=== PATIENT | male | born 1965 | race Caucasian/White ===

== ENCOUNTER 2021-08-16 00:29 | Day surgery (SDC) | payer OTHER, SELFPAY ==
[2021-07-28 13:34] VITALS: BMI 29.7
--- NOTE | 2021-08-15 09:28 | WPDANESEPPF ---
Anes - Initial Pre Proc Eval Procedure: Operation Date: 08/16/21 08:00 Proposed Procedures p Screening Colonoscopy - Kwaku Chaidez MD Date/Time: 08/15/21 09:28 Surgeon: Kwaku Chaidez MD Pre Op Diagnosis: neoplasm screening Patient Data Age: 56 Gender: M Height: 1.88 m Weight: 105 kg Allergies Allergy/AdvReac Type Severity Reaction Status Date / Time No Known Allergies Allergy Verified 08/16/21 06:52 Home Medications Medication Instructions Recorded Confirmed Type B infantis-B longum-L acid-L 1 cap PO DAILY 06/29/21 07/28/21 History rhamnosus 2 billion cell sprinkle capsule magnesium oxide 500 mg tablet 500 mg PO DAILY 06/29/21 07/28/21 History prasterone (dhea) 25 mg tablet 25 mg PO DAILY 06/29/21 07/28/21 History turmeric root extract 500 mg 500 mg PO DAILY 06/29/21 07/28/21 History capsule vitamin B complex 1 tablet PO DAILY 06/29/21 07/28/21 History omega-3 fatty acids [[place] 3 Fish 1,000 mg PO DAILY 07/28/21 07/28/21 History Oil] Patient hx anesthesia problems: none Family hx anesthesia problems: none Results Review: All pre-operative results and documents have been reviewed as part of the pre-operative evaluation. [facility] Surgical History Surgical History H/O vasectomy Family History Family History Grandparent Alcoholism Carcinoma of colon Father Hypertension Mother Colitis Other Depression Anxiety Alcoholism Social History Social History Social History: 4 cups of caffeine daily Smoking status: Never smoker Alcohol intake: current Drinks per week: 3 Alcohol use details: [place] Substance use: current Substance use type: marijuana Living arrangements: with family Additional occupation/education comments: Pharmacist Gender identity (if verbalized by the patient): Male Sexual Orientation (if Verbalized by the Patient): Straight or Heterosexual Spiritual care concerns: No Agree to blood products: Yes Anes - Eval Final PreProcedure Day of Procedure 08/15/21 09:28 Patient weight: overweight Heart: regular rate and rhythm Lungs: clear to auscultation and normal air movement Airway: Mallampati scale class II Neurological: alert and oriented Last oral intake: >/= 8 hours ASA classification: II Emergent: no Anesthetic plan: proceed Anesthesia type and monitoring: general GIVS and standard monitoring Results Review: All pre-operative results and documents have been reviewed as part of the pre-operative evaluation. Informed Consent: The patient's anesthetic plan and its attendant risks and benefits were discussed with the patient/family/POA. Questions were solicited and answers provided to the satisfaction of the patient/family/POA.
--- NOTE | 2021-08-15 13:25 | P.HP_ITS ---
History of Present Illness History of Present Illness Consent: Risks, benefits, and alternatives have been discussed and questions answered. Patient agrees to proceed with procedure. Chief complaint: neoplasm screening Narrative: Den Gonzalez is a 56 year old male who was referred for colon cancer screening. Review of Systems Review of Systems: All systems reviewed & are unremarkable except as noted in HPI and below PMFSH Surgical History Surgical History H/O vasectomy Family History Family History Grandparent Alcoholism Carcinoma of colon Father Hypertension Mother Colitis Other Depression Anxiety Alcoholism Social History Social History Social History: 4 cups of caffeine daily Smoking status: Never smoker Alcohol intake: current Drinks per week: 3 Alcohol use details: [place] Substance use: current Substance use type: marijuana Living arrangements: with family Additional occupation/education comments: Pharmacist Gender identity (if verbalized by the patient): Male Sexual Orientation (if Verbalized by the Patient): Straight or Heterosexual Spiritual care concerns: No Agree to blood products: Yes Meds Home Medications and Allergies Home Medications Medication Instructions Recorded Confirmed Type B infantis-B longum-L acid-L 1 cap PO DAILY 06/29/21 07/28/21 History rhamnosus 2 billion cell sprinkle capsule magnesium oxide 500 mg tablet 500 mg PO DAILY 06/29/21 07/28/21 History prasterone (dhea) 25 mg tablet 25 mg PO DAILY 06/29/21 07/28/21 History turmeric root extract 500 mg 500 mg PO DAILY 06/29/21 07/28/21 History capsule vitamin B complex 1 tablet PO DAILY 06/29/21 07/28/21 History omega-3 fatty acids [[place] 3 Fish 1,000 mg PO DAILY 07/28/21 07/28/21 History Oil] Allergies Allergy/AdvReac Type Severity Reaction Status Date / Time No Known Allergies Allergy Verified 08/16/21 06:52 Exam Resp: Auscultation: clear to auscultation bilaterally Cardio: Rate: regular rate Rhythm: regular rhythm GI: GI Palp: Yes Soft to palpation and No Tenderness to palpation present (GI) Assessment and Plan Assessment and plan (1) Screening for colon cancer: Code(s): Z12.11 - Encounter for screening for malignant neoplasm of colon Status: Acute Assessment and Plan: Colonoscopy with possible biopsy or polypectomy or cautery or injection of substances.
[2021-08-16 06:54] VITALS: BP 141/98; PULSE 83; RESP 16; TEMP 36.4; O2SAT 99; BMI 29.1
[2021-08-16] MEDS: LACTATED RINGERS 1,000 ML 150 ML IV CONT (07:04)
[2021-08-16] MEDS: SIMETHICONE ORAL SUSPENSION 20 MG/0.3 ML 30 ML BOTTLE 0.6 ML IRRIGATION (08:01)
[2021-08-16 08:16] VITALS: BP 109/85; PULSE 64; RESP 19; O2SAT 99
[2021-08-16 08:26] VITALS: BP 120/78; PULSE 62; RESP 24; O2SAT 97
[2021-08-16 08:36] VITALS: BP 131/90; PULSE 64; RESP 21; O2SAT 97
== END 2021-08-16 08:47 | disposition home or self-care (01) ==
PROVIDERS: PCP Internal Medicine; Visit Provider Internal Medicine Gastroenterology
PROC: 0DJD8ZZ Inspection of Lower Intestinal Tract, Via Natural or Artificial Opening Endoscopic (ICD-10-PCS; CPT 45378; principal; 2021-08-16 08:00)
DX: Z12.11 Encounter for screening for malignant neoplasm of colon (principal); K63.5 Polyp of colon; F12.90 Cannabis use, unspecified, uncomplicated
CPT/HCPCS: 45385; 45381; 88305; J2704; J7120